=== PATIENT | male | born 1955 | race American Indian/Alaskan Native ===

== ENCOUNTER 2018-06-20 07:20 | Day surgery (SDC) | payer BC, OTHER ==
[~2018-06-20] VITALS: Ht 180.3 cm; Wt 77.1 kg
[~2018-06-20 07:20] MED LIST: CIPRO500 MG PO; DITROPAN XL5 MG PO; FLAGYL500 MG PO; HYDROCODON-ACE1 EAC8 PO; NEXIUM20 MG PO; NORCO 5-325 TA1 EACH PO; OXYBUTYNIN CHLOR5 MG PO; TAMSULOSIN HCL0.4 MG PO; ZOFRAN ODT4 MG SL; ZOFRAN ODT8 MG PO
--- NOTE | 2018-06-20 08:44 | NUR ---
06/20/18 0844 Karen Goodwin 0832-PATIENT ARRIVED TO PACU ON 2L NC NONAROUSABLE. RR EVEN. ABDOMEN SOFT. LAYING LEFT LATERAL. 0840-PATIENT OPENING EYES TO VERBAL STIMULI ENCOURAGED TO PASS GAS. 2L NC.
--- NOTE | 2018-06-21 06:22 | OR ---
[facility] [address], [place] [address] Signed DATE OF OPERATION: 06/20/2018 SURGEON: Korin Mcgowan MD PREOPERATIVE DIAGNOSES: 1. Personal history of colonic polyps in 2013. 2. Hemorrhoids. 3. Diverticulosis. 4. Radical cystoprostatectomy with ileal conduit. POSTOPERATIVE DIAGNOSES: 1. Moderate internal and external hemorrhoids. 2. 5 mm polyps proximal and distal transverse colon. 3. Minimal sigmoid diverticulosis. PROCEDURE: Colonoscopy with hot biopsy. ESTIMATED BLOOD LOSS: None. INDICATIONS: Rocael is a 63-year-old gentleman, who underwent a colonoscopy in 2013. He is known to have hemorrhoids along with diverticulosis and colonic polyps. In the meantime, he underwent a radical cystoprostatectomy with an ileal conduit. He returns now for his followup colonoscopy. There is no family history of colon cancer or polyps. He says his bowel movements are good. In the office, I gave him a pamphlet on colonoscopy and we looked at that together along with the risks including, but not limited to gas, bloating, crampy abdominal pain, bleeding, perforation, requiring surgery, and missed diagnosis. He also understands the need for IV conscious sedation. He had expressed understanding and wished to proceed. PROCEDURE NOTE: Rocael was taken into our operating room and placed in the left lateral decubitus position. He was given IV sedation with 8 mg of Versed and 100 mcg of fentanyl. A digital rectal exam was performed. 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 He does have moderate external hemorrhoids. Good sphincter tone. The adult colonoscope was introduced and advanced all the way around into the cecum under direct visualization of camera. It took some abdominal compression and some additional sedation in order to advance the scope. His prep was quite Electronically Signed By: KORIN MCGOWAN MD 06/21/18 0622 PATIENT NAME: ROCAEL FLOWERS OPERATIVE REPORT DATE OF : 57 REPORT #: [id number] PHYSICIAN: KORIN MCGOWAN MD PCP: BARBRA NAVARRO REPORT IS CONFIDENTIAL AND NOT TO BE RELEASED WITHOUT AUTHORIZATION [facility] [address], [place] [address] Signed excellent. We had taken pictures throughout for photodocumentation. The above-mentioned polyps were easily removed with the help of hot biopsy forceps. We did see a few diverticula in the sigmoid colon. Upon retroflexion of the scope, he does have some moderate internal hemorrhoids. After this, the gas was suctioned out and the colonoscope removed. Rocael tolerated the procedure quite well. RECOMMENDATIONS: I will see Rocael back in my office in 7 to 14 days to review his results. It looks like he will stay on the 5-year rotation for colonoscopies. MD MORIS Barrera/TIAN /[id number] cc: MD Barbra Barrera PA Copies: KORIN MCGOWAN MD, KRISTIN H PA ~ Electronically Signed By: KORIN MCGOWAN MD 06/21/18 0622 PATIENT NAME: ROCAEL FLOWERS OPERATIVE REPORT DATE OF : 57 REPORT #: [id number] PHYSICIAN: KORIN MCGOWAN MD PCP: BARBRA NAVARRO REPORT IS CONFIDENTIAL AND NOT TO BE RELEASED WITHOUT AUTHORIZATION
== END 2018-06-20 09:26 | disposition home or self-care (01) ==
LOC: DS 07:20 → OPS 07:20 → DS 08:15 → OPS 09:26
PROVIDERS: Colon & Rectal Surgery
PROC: 0DBL8ZZ Excision of Transverse Colon, Via Natural or Artificial Opening Endoscopic (ICD-10-PCS; principal; 2018-06-20 08:15)
DX: Z12.11 Encounter for screening for malignant neoplasm of colon (principal); D12.3 Benign neoplasm of transverse colon; K64.8 Other hemorrhoids; K64.4 Residual hemorrhoidal skin tags; K63.5 Polyp of colon; K57.30 Diverticulosis of large intestine without perforation or abscess without bleeding; F17.210 Nicotine dependence, cigarettes, uncomplicated; Z98.890 Other specified postprocedural states; Z90.79 Acquired absence of other genital organ(s)
CPT/HCPCS: 99153; G0500; J2250; J3010; J7120

== ENCOUNTER 2022-12-19 14:25 | Inpatient (IN) | payer BC, OTHER ==
[~2022-12-19] VITALS: Ht 180.3 cm; Wt 75.5 kg
--- OUTSIDE RECORDS SUMMARY | ~2022-12-19 | XMS | Continuity of Care Document ---
Demographics + + + | Address | [address] | | | [place] [address] | + + + | Preferred Language | Unknown | + + + | Marital Status | | + + + | Taoist Affiliation | Unknown | + + + | Race | or | + + + | Ethnic Group | Unknown | + + + Author + + + | Author | [facility] | + + + | Organization | [facility] | + + + | Address | [address] | | | [place] [address] | + + + | Phone | | + + + Care Team Providers + + + + | Care Cement Contractor Name | Role | Phone | + + + + Unavailable | Unavailable | + + + + Allergies and Intolerances + + + + + + | date | description | facility | reaction | severity | + + + + + + | (no date) | No Known | [facility] | (no reaction) | (no severity) | | | Allergies | | | | + + + + + + Encounters No information. Functional Status No information. Immunizations No information. Medications No information. Problems No information. Procedures No information. Results/Labs No information. Social History No information. Vital Signs No information."
[~2022-12-19 14:25] MED LIST changes: +KEFLEX500 MG PO
[2022-12-19] MEDS ORDERED: SENNA8.6 MG PO (14:43)
[2022-12-19 15:51] LABS: BASOPHILS 0.5 % (0-2); EOSINOPHILS 0.6 % (0-6); HEMATOCRIT 48.6 % (35.0-50.0); HEMOGLOBIN 16.4 g/dL (12.0-18.0); LYMPHOCYTES 22.7 % (24-44); MCH 30.6 (27-36); MCHC 33.8 g/dl (30-36); MCV 90.4 fl (81-99); MONOCYTES 7.3 % (0-12); NEUTROPHILS 68.9 % (39-80); PLATELET COUNT 204 K/uL (140-440); RBC 5.38 M/ul (4.3-5.7); RDW 13.6 (10.5-15.0)
[2022-12-19 15:59] LABS: BILIRUBIN, URINE NEGATIVE (negative); BLOOD/HGB, URINE MODERATE (Negative); KETONE, URINE NEGATIVE (Negative); LEUK ESTERASE, URINE SMALL (negative); NITRITE, URINE POSITIVE (negative)
[2022-12-19 16:07] LABS: ALBUMIN 4.4 g/dL (3.4-5.0); ALBUMIN/GLOBULIN RATIO 1.29 (1.1-2.4); ANION GAP 13.4 (7-21); BILIRUBIN, TOTAL 0.9 ng/dL (0.2-1.0); BUN/CREATININE RATIO 13.17 (6.0-28.6); CALCIUM 9.9 mg/dL (8.5-10.1); CREATININE, SERUM 1.29 mg/dL (0.70-1.30); POTASSIUM 4.4 mmol/L (3.5-5.1); PROTEIN, TOTAL 7.8 g/dL (6.4-8.2)
[2022-12-19 16:17] LABS: BACTERIA, URINE 3+ /hpf (negative); CASTS, URINE NONE SEEN \\lpf; CRYSTALS, URINE NONE SEEN (0-1+); EPITHELIAL CELLS, URINE NONE SEEN /lpf (0-1+)
[2022-12-19 16:18] LABS: COLLECTION TYPE, URINE CLEAN CATCH; REFLEX CULTURE, URINE Yes (No)
[2022-12-19 19:14] VITALS: BP 168/82
--- NOTE | 2022-12-19 19:38 | NUR ---
REPORT RECEIVED FROM DAY SHIFT RN. PT LYING IN BED ALERT AND ORIENTED. RV DETAILER IN FOR ADMISSION. FLOAT RN ADMINISTERING PAIN MEDS AND SCDHEDULED MEDS. NO NEEDS FROM THIS RN AT THIS TIME. WHITE BOARD UPDATED. CALL LIGHT IN REACH.
--- NOTE | 2022-12-19 19:50 | NUR ---
ADMISSION HISTORY COMPLETE, pt AND ANSWERING QUESTIONS. FLOAT AKBAR ART IN ROOM MEDICATING pt FOR PAIN, NAUSEA, AND ADMINISTERING SCHEDULED ANTIBIOTICS. ORIENTATION TO ROOM PROVIDED. pt HAS CALL LIGHT IN REACH. SURGICAL CONSENT SIGNED BY pt AND ON CHART. FAMILY PRESENT IN ROOM.
--- NOTE | 2022-12-19 20:00 | NUR ---
FAX RECEIVED FROM TELEPHARMACY TO CLARIFY MEDICATION ORDERS. DISCUSSED WITH DR. MCGOWAN. NEW TELEPHONE ORDERS RECEIVED VERIFIED WITH READBACK METHOD.
--- NOTE | 2022-12-19 20:33 | NUR ---
ADMISSION ASSESSMENT COMPLETE. PT REPORTS CONTINUED NAUSEA. PRN N/V ADMIN PER EMAR. BOWEL TONES ACTIVE. ABD SOFT. UROSTOMY PATENT WITH CLEAR YELLOW URINE. PT ORIENTED TO ROOM AND NURSE CALL LIGHT. FAMILY AT BEDSIDE. NO FURTHER NEEDS.
--- NOTE | 2022-12-19 22:06 | NUR ---
IV FREQUENTLY OCCLUDING IN LEFT AC. PT AGREEABLE TO NEW IV. 20G PLACED IN RIGHT FOREARM. PT GLADYS WELL. IV ABX INFUSING WNL. PT REPORTS HE IS RESTING COMFORTABLY. DENIES NEEDS AT THIS TIME.
--- NOTE | 2022-12-19 23:19 | NUR ---
IV PUMP ALARMING. IV ABX COMPLETE. MAINTENANCE FLUIDS NOW INFUSING PER ORDER. PT AWAKENS BRIEFLY WHILE THIS RN IN ROOM. IN ROOM TO STAY THE NIGHT. NO NEEDS AT THIS TIME.
[2022-12-20] VITALS (8 sets, daily range): BP systolic 120–153; BP diastolic 65–75
--- NOTE | 2022-12-20 01:53 | NUR ---
PT RESTING WITH EYES CLOSED. AWAKENS EASILY. VS AND I&O OBTAINED. PRN ADMIN FOR 6/10 ABD PAIN. BOWEL TONES ACTIVE. ABD SOFT. UROSTOMY WITH 275 ML YELLOW URINE. PT REMINDED OF NPO STATUS. WARM BLANKETS PROVIDED FOR . NO FURTHER NEEDS.
--- NOTE | 2022-12-20 03:35 | NUR ---
PT RESTING IN BED WITH EYES CLOSED. RESPIRATIONS EVEN. CALL LIGHT IN REACH.
[2022-12-20 06:04] LABS: BASOPHILS 0.2 % (0-2); EOSINOPHILS 0.1 % (0-6); HEMATOCRIT 44.9 % (35.0-50.0); HEMOGLOBIN 14.9 g/dL (12.0-18.0); LYMPHOCYTES 10.2 % (24-44); MCH 30.2 (27-36); MCHC 33.1 g/dl (30-36); MCV 91.3 fl (81-99); MONOCYTES 6.9 % (0-12); NEUTROPHILS 82.6 % (39-80); PLATELET COUNT 162 K/uL (140-440); RBC 4.92 M/ul (4.3-5.7); RDW 13.9 (10.5-15.0)
--- NOTE | 2022-12-20 06:06 | CONS ---
[facility] [address], [place] [address] Signed DATE OF CONSULTATION: 12/19/2022 CHIEF COMPLAINT: Right lower quadrant abdominal pain. HISTORY OF PRESENT ILLNESS: Rocael is a 67-year-old gentleman, who had developed bladder cancer. He eventually progressed to a radical cystoprostatectomy with an ileal conduit in the right lower quadrant in June 2016, at [facility]. He has done well since that time. 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 Earlier today around noon or so, he felt some pain around his ileostomy. It has been persistent, so he came to emergency room for evaluation. In the emergency room, his white count is normal, but the CT scan did confirm a small bowel forming a parastomal hernia. He has received some pain medication and was feeling a lot better. I have been asked to see him as a general surgeon on-call. PAST MEDICAL HISTORY: Bladder cancer. PAST SURGICAL HISTORY: Radical cystoprostatectomy with ileal conduit at [facility] in 2017, also transurethral resection of bladder tumor with chemotherapy, repair of a perforated ulcer and left shoulder surgery. SOCIAL HISTORY: He is down to 3 cigarettes a day. He does not drink. He likes to chew on Zyn. He prefers [facility] along with the [facility]. Ari Flowers, is his at [phone]. He works [employer] maintenance. FAMILY HISTORY: None. REVIEW OF SYSTEMS: He had 10 systems reviewed and he talked to me mostly about the bladder cancer. ALLERGIES: None. MEDICATIONS: Senna. PHYSICAL EXAMINATION: VITAL SIGNS: His blood pressure is 164/87 from the pain, heart rate 56, respiratory Electronically Signed By: KORIN JIMENES MD 12/20/22 0606 PATIENT NAME: ROCAEL FLOWERS CONSULTATION DATE OF : 57 REPORT #: [id number] PHYSICIAN: KORIN JIMENES MD PCP: [facility] REPORT IS CONFIDENTIAL AND NOT TO BE RELEASED WITHOUT AUTHORIZATION [facility] [address], [place] [address] Signed rate 16, temperature is 98.5. He is 100% on room air. He is 5 feet 11 inches and 74 kg with a body mass index of 23. GENERAL: This is a 67-year-old gentleman, lying supine in his ER bed. His is in the room. He does not appear systemically ill or toxic. LUNGS: Clear to auscultation bilaterally. HEART: Regular rate and rhythm without murmurs. ABDOMEN: Generally soft and flat. It is hard to see underneath the stoma appliance. He seems to have some tenderness there. He has entire bag full of yellow clear urine. He said the conduit has been working fine all day. LABORATORY DATA: His white blood count 9.2, hemoglobin 16, neutrophils 68. Electrolytes unremarkable. The urine shows bacteria, but then he has an ileal conduit. Urine culture was sent. Albumin is 4.4. RADIOGRAPHIC STUDIES: CT scan of abdomen and pelvis is reviewed along with the report and the images. He does have a parastomal hernia containing small bowel. ASSESSMENT/PLAN: Rocael is a 67-year-old gentleman, who presents with a parastomal hernia containing small bowel. Currently, our OR crew has been working since 5 a.m. The other surgeon is still operating. We are going to get Rocael admitted, IV fluids, antibiotics, and pain control. We are going to do a surgery first thing in the morning. I reviewed all this with Rocael and his . We discussed the need for a midline incision and reduction of the hernia. He may need a small bowel resection. We will close the hole primarily. We are not going to move his ileal conduit given that he has a high rate of recurrence. They have expressed understanding and agreed to above plan. Korin Jimenes MD [facility]/MODL /[id number] cc: [facility] Patient's Chart Electronically Signed By: KORIN JIMENES MD 12/20/22 0606 PATIENT NAME: ROCAEL FLOWERS CONSULTATION DATE OF : 57 REPORT #: [id number] PHYSICIAN: KORIN JIMENES MD PCP: [facility] REPORT IS CONFIDENTIAL AND NOT TO BE RELEASED WITHOUT AUTHORIZATION [facility] [address] [facility] [place], [place] [address] Signed Korin Jimenes MD Copies: [facility] KORIN JIMENES MD ~ Electronically Signed By: KORIN JIMENES MD 12/20/22 0606 PATIENT NAME: ROCAEL FOLWERS CONSULTATION DATE OF : 57 REPORT #: [id number] PHYSICIAN: KORIN JIMENES MD PCP: [facility] REPORT IS CONFIDENTIAL AND NOT TO BE RELEASED WITHOUT AUTHORIZATION
--- NOTE | 2022-12-20 06:35 | NUR ---
VS AND I&O OBTAINED. PT REPORTS ABD PAIN 5/10. PRN FOR PAIN ADMIN PER EMAR. PT UP TO BR FOR SURGICAL WIPEDOWN. CLEAN GOWN AND LINENS PROVIDED. BACK TO BED, GLADYS WELL. SCD'S IN PLACE. DR. MCGOWAN IN TO UPDATE PT ON PLAN OF CARE. PT/ DENY QUESTIONS OR CONCERNS. CALL LIGHT IN REACH.
[2022-12-20 06:45] LABS: ANION GAP 14.8 (7-21); BUN/CREATININE RATIO 11.9 (6.0-28.6); CREATININE, SERUM 1.68 mg/dL (0.70-1.30); MAGNESIUM 1.8 mg/dL (1.8-2.4); PHOSPHORUS, INORGANIC 3.5 mg/dL (2.5-4.9); POTASSIUM 4.8 mmol/L (3.5-5.1)
--- NOTE | 2022-12-20 06:45 | NUR ---
PT OFF THE FLOOR WITH SURGERY NURSE. DOWN TO DAY SURGERY WITH PT.
--- NOTE | 2022-12-20 07:08 | NUR ---
REPORT RECEIVED FROM AKBAR JACKSON. PT OUT OF ROOM FOR PROCEDURE. NO NEEDS FROM THIS RN.
--- NOTE | 2022-12-20 07:10 | NUR ---
PRAYED WITH PT AND BEFORE SURGERY. PRAYED FOR SUCCESSFUL PROCEDURE AND MOODY AND COMPLETE RECOVERY.
--- NOTE | 2022-12-20 07:25 | EKG ---
[facility] [address] [facility] [place], [place] [address] Signed Normal sinus rhythm Left axis deviation Abnormal ECG No previous ECGs available Confirmed by MITA PULIDO MD ([id number]) on 12/20/2022 7:25:21 AM Electronically Signed By: MITA PULIDO 12/20/22 0725 PATIENT NAME: ROCAEL FLOWERS MANAV Electrocardiogram DATE OF : 57 PHYSICIAN: MITA PULIDO REPORT #: [id number] REPORT IS CONFIDENTIAL AND NOT TO BE RELEASED WITHOUT AUTHORIZATION
--- NOTE | 2022-12-20 09:46 | NUR ---
12/20/22 0946 Jacqueline Glaser 0929 PT ARRIVED IN PACU SLEEPY. ICE AND PILLOW TO ABD. 0945 RESTING. REU.
--- NOTE | 2022-12-20 10:13 | NUR ---
PT BACK TO ROOM ACCOMPANIED BY RN. BEDSIDE REPORT RECEIVED. PT DENIES PAIN. VITALS COMPLETE. NEW ICE PACK PLACED. PT REQUESTING ICE CHIPS. ICE CHIPS PROVIDED. NEW BAG OF FLUIDS STARTED, SEE JUN. IV's FLUSH WNL. FAMILY IN ROOM. PT DENIES ANY NEEDS FROM THIS RN AT THIS TIME. CALL LIGHT IN REACH. BED ALARM ON.
--- NOTE | 2022-12-20 10:42 | NUR ---
ASSESSMENT COMPLETE. LUNG SOUNDS CLEAR IN RUL AND VIC. DIMINISHED IN RLL AND LLL. BOWEL TONES HYPOACTIVE. ABD FIRM WITH PALPATION. PT DENIES PAIN AT THIS TIME. PT A&O TO ALL. ICE CHIPS PROVIDED. FAMILY IN ROOM. BED ALARM ON. CALL LIGHT IN REACH. PT DENIES ANY OTHER NEEDS AT THIS TIME.
--- NOTE | 2022-12-20 12:35 | NUR ---
IN TO ROUND ON PT. PT UP IN BED EATING LUNCH. VITALS COMPLETE. UROSTOMY EMPTIED. PT DENIES ANY OTHER NEEDS AT THIS TIME. CALL LIGHT IN REACH. BED ALARM ON.
--- NOTE | 2022-12-20 13:00 | NUR ---
Spoke with pt, Ari, and daughter. Pt drowsy and answers most of questions. They live in a 2 story home. Pt does not have issues getting in or out of home. 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 and daughter state concern as they were on planning on trip for [facility] service for Grandmother. They were to fly out Sat. Pt stating he will be going. Pt does not use any DME. If he requires DME on dc, he would like to use [facility]. denies financial issues. Per they could also wait to fly next week on Mon or Tues if needed. Service is not until next Sun.
--- NOTE | 2022-12-20 15:42 | NUR ---
IN TO ROUND ON PT. PT UP IN BED ON PHONE. IN ROOM. NO NEEDS IDENTIFIED AT THIS TIME. CALL LIGHT IN REACH.
--- NOTE | 2022-12-20 15:46 | NUR ---
IN TO ANSWER CALL LIGHT. PT STATES "I WAS JUST CALLING BECAUSE SOMEONE TRIED TO COME IN WHILE I WAS ON THE PHONE." ASSESSMENT COMPLETE. LUNG SOUNDS CLEAR. BOWEL TONES ACTIVE. DRESSING TO MID ABD D/I WITH SMALL AMOUNT OF SHADOWING NOTED. ABD FIRM WITH PALPATION. PT DENIES PAIN AT THIS TIME. PT REPORTS PASSING GAS 1X EARLIER TODAY. UROSTOMY EMPTIED. PT DENIES ANY OTHER NEEDS AT THIS TIME. CALL LIGHT IN REACH. BED ALARM ON.
--- NOTE | 2022-12-20 16:43 | NUR ---
IN TO ROUND ON PT. FWW BROUGHT INTO ROOM. THIS RN WAS ABLE TO GET PT TO SIT AT EDGE OF BED. PT STATES "I FEEL A LITTLE DIZZY, I DON'T THINK I SHOULD STAND UP. I DO WANT TO KEEP SITTING ON EDGE OF BED THOUGH. IT FEELS GOOD." PT CONTINUES TO SIT ON EDGE OF BED. DINNER TRAY PROVIDED. PT CALL LIGHT IN REACH. PT ENCOURAGED TO CALL IF PT NEEDS ASSISTANCE. PT VERBALIZES UNDERSTANDING. PT DENIES ANY OTHER NEEDS AT THIS TIME. CALL LIGHT IN REACH.
--- NOTE | 2022-12-20 17:33 | NUR ---
IN TO ROUND ON PT. PT LAYING IN BED. PT GOES TO SIT UP ON EDGE OF BED TO CONTINUE EATING DINNER. PT STATES "MY BROTHER CALLED, SO I LAYED IN BED AND TALKED TO HIM." PT DENIES ANY NEEDS AT THIS TIME. CALL LIGHT IN REACH.
--- NOTE | 2022-12-20 19:30 | NUR ---
PT AWAKE IN BED WATCHING TV. CALL LIGHT WITHIN REACH. IV FLUIDS INFUSING. SURGICAL DRESSING AND OSTOMY BAG IN PLACE. SCD'S IN PLACE. NO NEEDS AT THIS TIME. SAFETY PRECAUTIONS IN PLACE.
--- NOTE | 2022-12-20 23:58 | OR ---
[facility] [address] [place] [address], [place] [address] Signed DATE OF OPERATION: 12/20/2022 SURGEON: Korin Jimenes MD PREOPERATIVE DIAGNOSES: 1. Parastomal hernia. 2. Umbilical hernia. POSTOPERATIVE DIAGNOSIS: 1. Parastomal hernia. 2. Umbilical hernia. PROCEDURES: 1. Primary repair of incarcerated parastomal hernia. 2. Primary repair of incarcerated umbilical hernia. ESTIMATED BLOOD LOSS: None. FINDINGS: Rocael had a 2 cm parastomal hernia. He had a 1 cm umbilical hernia. The umbilical hernia contained omentum. The parastomal hernia contained a knuckle of small intestine that remained viable. INDICATIONS: Rocael is a 67-year-old gentleman, who in 2017 underwent a radical cystoprostatectomy and placement of an ileal conduit in his right lower quadrant at [facility] He has done very well since that time. 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 Yesterday, he noticed pain on the lateral side of his ileal conduit. He came to emergency room for evaluation. His white count was normal. He had a palpable lump in that area that could not be reduced. The CT scan showed the knuckle of small bowel next to the ileal conduit on the lateral side. The other surgeon was operating with our continuity editor crew. So, we admitted Rocael overnight with IV fluids, antibiotics, and some pain control. This morning, he said he felt much better and was sleeping when I came in this morning to see him. White count remained normal. His has been with him throughout this whole time. I know Rocael's for many years. I explained to Rocael we needed to use his midline incision to come underneath and repair the hernia. Our plan was not to move the ileal conduit but simply close it primarily. We would resect the bowel as needed. We could easily repair his small umbilical hernia as well. He understands there is risk Electronically Signed By: KORIN JIMENES MD 12/20/22 2358 PATIENT NAME: ROCAEL FLOWERS OPERATIVE REPORT DATE OF : 57 REPORT #: [id number] PHYSICIAN: KORIN JIMENES MD PCP: [facility] REPORT IS CONFIDENTIAL AND NOT TO BE RELEASED WITHOUT AUTHORIZATION [facility] [address] [place], [place] [address] Signed to surgery including, but not limited to bleeding, infection, scarring, change in contour of the skin, damage to bowel, damage to the ileal conduit, incisional hernias as well as recurrent peristomal hernia and a recurrent umbilical hernia and other unforeseen comorbidities. He had expressed understanding and wished to proceed. PROCEDURE IN DETAIL: After talking with Rocael's , we took him into the operating room and placed him in the supine position under general endotracheal tube anesthesia. He was already on preoperative antibiotics along with subcutaneous Lovenox. SCDs were utilized. We inserted a sterile Mcgee catheter into his ileal conduit and inflated balloon to about 5 mL total. We then made sure there was no undue tension on the Mcgee and we brought off the side of the bed. The entire abdomen along with a sterile Mcgee catheter was then prepped and draped in the usual sterile fashion. We utilized his previous periumbilical midline incision. We entered the abdomen without difficulty. He did have a few adhesions above the umbilicus, which we took down with cautery. He does have some adhesions down in between the loops of bowel, but we left those along. Fortunately, we only had to do a few adhesions to get our way over to the ileal conduit. It was very easy to recognize ileal conduit separate from his other loops of bowel as it was mildly dilated. Sure enough we found a piece of small bowel in the lateral side and a gentle traction we were able to reduce that. The antimesenteric side of that 4 cm segment of bowel was a little hemorrhagic, but otherwise quite viable. It was peristalsing and looked quite viable to us throughout the remainder of the surgery. The fascial defect was a couple of cm maybe slightly more. We used #1 Prolene x2 with a fygxdm-id-iolum stitch. Closed that peristomal defect primarily. I gave no undue tension on the ileostomy itself. After this, we took the omentum down from the umbilical hernia. Again, we used #1 Prolene gbhiko-xp-ijlkb stitches x2 to close his umbilical fascial defect. We then closed the midline fascia with interrupted luzzev-kf-nrkfh #1 PDS sutures. Local anesthetic was injected in the subcutaneous tissues. The wound was irrigated and suctioned out until clear. We closed the dermis with interrupted 3-0 subcuticular Monocryl sutures. [place] were then used to bring the skin edges together. Our anesthesia provider then provided bilateral subcostal and tap blocks with ultrasound guidance. We then placed our sterile gauze over his midline incision. A new appliance was placed over his ileal conduit. After this, Rocael was awakened from his anesthesia, extubated in the OR, and taken to recovery room in stable condition. Korin Jimenes MD [facility]/MODL Electronically Signed By: KORIN JIMENES MD 12/20/22 6008 PATIENT NAME: ROCAEL FLOWERS OPERATIVE REPORT DATE OF : 57 REPORT #: [id number] PHYSICIAN: KORIN JIMENES MD PCP: [facility] REPORT IS CONFIDENTIAL AND NOT TO BE RELEASED WITHOUT AUTHORIZATION [address] [place], [place] [address] Signed /[id number] cc: Korin Jimenes MD [facility] Copies: KORIN JIMENES MD [facility] ~ Electronically Signed By: KORIN JIMENES MD 12/20/22 2358 PATIENT NAME: ROCAEL FLOWERS OPERATIVE REPORT DATE OF : 57 REPORT #: [id number] PHYSICIAN: KORIN JIMENES MD PCP: [facility] REPORT IS CONFIDENTIAL AND NOT TO BE RELEASED WITHOUT AUTHORIZATION
[2022-12-21 01:17] VITALS: BP 120/65
[2022-12-21 05:24] VITALS: BP 122/71
--- NOTE | 2022-12-21 05:34 | NUR ---
PT. VITAL SIGNS AND I/OS CHARTED. PT. UROSTOMY EMPTIED. ROOM TIDIED, TRASH CANS EMPTIED, FRESH ICE WATER GIVEN, RN NOTIFIED OF IV PUMP ALARM. CALL LIGHT LEFT WIHTIN REACH. NO OTHER NEEDS AT THIS TIME.
--- NOTE | 2022-12-21 07:10 | NUR ---
REPORT RECEIVED FROM AKBAR LORD. PT UP IN BED WATCHING TV. PT RESPONDS WHEN ADDRESSED. PT DENIES ANY NEEDS AT THIS TIME. CALL LIGHT IN REACH.
--- NOTE | 2022-12-21 08:09 | NUR ---
pt resting in bed. pt up now in room. pt ambulates 2 laps around rn station sba w fww. pt tolerated well. pt up to chair. linens changed. no needs. call light within reach
--- NOTE | 2022-12-21 08:59 | NUR ---
IN TO ADMINISTER MEDICATION, SEE MAR. PT TAKES PO MEDICATION WITH NO ISSUES. PT REPORTING PAIN IN ABD 11/06. PRN PAIN MEDICATION ADMINISTERED, SEE MAR. PT DENIES ANY OTHER NEEDS AT THIS TIME. CALL LIGHT IN REACH. PT UP IN RECLINER EATING BREAKFAST.
[2022-12-21 09:15] VITALS: BP 129/61
--- NOTE | 2022-12-21 09:24 | NUR ---
IN TO COMPLETE ASSESSMENT. GUERITA ESCOBAR IN TO ASSIST WITH VITALS AND I&Os. VITALS AND I&Os COMPLETE. ASSESSMENT COMPLETE. LUNG SOUNDS CLEAR. BOWEL TONES ACTIVE. PT REPORTS PASSING GAS EARLIER THIS AM. PT REPORTS TENDERNESS WITH PALPATION. ABD FIRM WITH PALPATION. DRESSING TO MIDLINE ABD C/D/I. PT REQUESTING TO CHANGE UROSTOMY APPLIANCE TO PTs OWN FROM HOME. ASSISTED PT WITH CHANGING UROSTOMY. PT DENIES ANY OTHER NEEDS AT THIS TIME. PT UP IN RECLINER WITH BLE ELEVATED. CALL LIGHT IN REACH.
--- NOTE | 2022-12-21 10:08 | NUR ---
PT SITTING IN CHAIR. STATED WAS FEELING PRETTY GOOD BUT ADMITTED TO SOME PAIN. DENIED NEEDS. CONSENTED TO PRAYER. PRAYED FOR ONGOING HEALING AND ABIDING PEACE.
--- NOTE | 2022-12-21 10:53 | NUR ---
IN TO ROUND ON PT. PT UP IN RECLINER WATCHING TV. PT RESPONDS WHEN ADDRESSED. PT REPORTING PAIN 2/10 AND STATES "IT IS NOT BAD IT WAS." PT DENIES PRN PAIN MEDICATION WHEN OFFERED. PT REQUESTING HEAT TURNED UP IN ROOM. HEAT TURNED UP. PT DENIES ANY OTHER NEEDS AT THIS TIME. CALL LIGHT IN REACH.
--- NOTE | 2022-12-21 12:30 | NUR ---
THIS RN NOTIFIED THAT PT IS REQUESTING PRN PAIN MEDICATION. IN TO ROUND ON PT. PT REPORTING PAIN 11/06 IN ABD. PRN PAIN MEDICATION ADMINISTERED, SEE MAR. PT TAKES PO MEDICATION WITH NO ISSUES. PT DENIES ANY OTHER NEEDS AT THIS TIME. CALL LIGHT IN REACH. IN ROOM.
--- NOTE | 2022-12-21 12:39 | NUR ---
MED REC COMPLETE
--- NOTE | 2022-12-21 13:00 | NUR ---
pt ambulates 2 laps around rn station w tawana mckinnon rn
--- NOTE | 2022-12-21 13:00 | NUR ---
Spoke with pt and his . He denies needs. States he has been up walking in the [place]. He denies need for a walker or cane.
[2022-12-21 13:21] VITALS: BP 136/68
--- NOTE | 2022-12-21 13:55 | NUR ---
IN TO ROUND ON PT. PT UP IN RECLINER. PT REPORTING PAIN 08/07. PT DENIES PRN PAIN MEDICATION AT THIS TIME. OFFERED PT ICE PACK. PT DENIES ICEPACK. PT DENIES ANY OTHER NEEDS AT THIS TIME. CALL LIGHT IN REACH.
--- NOTE | 2022-12-21 15:08 | NUR ---
THIS RN CALLED DR. MCGOWAN REGARDING PTs PRELIMINARY URINE CULTURE RESULTS. NO NEW ORDERS AT THIS TIME. AWARE.
--- NOTE | 2022-12-21 15:33 | NUR ---
IN TO ROUND ON PT. PT UP IN RECLINER. PT REPORTING PAIN 6/10 TO ABD. PT DENIES ANY PRN PAIN MEDICATION OR ICE PACK WHEN OFFERED.
--- NOTE | 2022-12-21 17:03 | NUR ---
IN TO ROUND ON PT. PT UP IN RECLINER. PT FLUIDS RESUMED. DINNER TRAY DELIVERED. PT REPORTING PAIN 4/10 IN ABD. PT DENIES ANY PRN PAIN MEDICATION WHEN OFFERED. VITALS COMPLETE. I&Os COMPLETE. PT DENIES ANY OTHER NEEDS AT THIS TIME. CALL LIGHT IN REACH.
[2022-12-21 17:05] VITALS: BP 147/67
--- NOTE | 2022-12-21 19:22 | NUR ---
IN IV PUMP ALARMING. NEW BAG OF FLUIDS STARTED, SEE JUN. PT REPORTING PAIN 5/10 TO ABD. PRN PAIN MEDICATION ADMINISTERED, SEE JUN. DINNER TRAY REMOVED. LIGHT TURNED OFF PER PT REQUEST. PT DENIES ANY OTHER NEEDS AT THIS TIME. CALL LIGHT IN REACH.
--- NOTE | 2022-12-21 19:42 | NUR ---
PT UP IN CHAIR WATCHING TV. IV INFUSING. CALL LIGHT LIGHT WITHIN REACH. PRN MOTRIN ADMINISTERED PER PT REQUEST. NO OTHER NEEDS AT THIS TIME. SAFETY PRECAUTIONS IN PLACE.
--- NOTE | 2022-12-21 19:43 | NUR ---
REPORT RECEIVED FROM DAY SHIFT NURSE. PT SITTING UP IN CHAIR WATCHING TV. SAFETY PRECAUTIONS IN PLACE. CALL LIGHT WITHIN REACH. PAIN MEDS GIVEN PER PATIENT REQUEST. NO OTHER NEEDS AT THIS TIME.
[2022-12-21 20:21] VITALS: BP 142/68
--- NOTE | 2022-12-21 20:24 | NUR ---
Pt sitting in chair. pt in room. pt has no needs at this time.
--- NOTE | 2022-12-21 21:20 | NUR ---
assisted pt with ambulating in hallway, walked 1.5 laps, tolerated well. pt back in bed, no additional needs or concerns verbalzied. call light in reach. pt left resting quietly in bed, scd's in place. pt remains on ra, rr even and unlabored.
[2022-12-22 05:44] VITALS: BP 157/78
--- NOTE | 2022-12-22 07:05 | NUR ---
REPORT RECEIVED FROM AKBAR LORD. PT UP IN RECLINER. IN ROOM. PT RESPONDS WHEN ADDRESSED. PT DENIES ANY NEEDS AT THIS TIME. CALL LIGHT IN REACH.
--- NOTE | 2022-12-22 07:31 | NUR ---
REPORT GIVEN TO DAY SHIFT RN. PT SITTING UP IN A CHAIR WATCHING TV. IN THE ROOM. INCISION CLEAN, DRY AND INTACT. PAIN MEDS GIVEN PER PT REQUEST. CALL LIGHT WITHIN REACH. NO OTHER NEEDS AT THIS TIME. SAFETY PRECAUTIONS IN PLACE.
--- NOTE | 2022-12-22 09:14 | NUR ---
IN TO ADMINISTER MEDICATION, SEE MAR. PT TAKES PO MEDICATION WITH NO ISSUES. PT REPORTING PAIN 4/10 TO ABD. PT DENIES PRN PAIN MEDICAITON WHEN OFFERED. PT SL AT THIS TIME. ASSESSMENT COMPLETE. LUNG SOUNDS CLEAR. BOWEL TONES ACTIVE. ABD DISTENTION NOTED. PT REPORTS TENDERNESS WITH ABD PALPATION. PT REPORTS NOT PASSING ANY GAS SINCE "ABOUT 10 O'CLOCK LAST NIGHT." PT MIDLINE INCISION OPEN TO AIR. NO REDNESS NOTED, NOT WARM TO TOUCH. PT DENIES NUMBNESS OR TINGLING AT THIS TIME. PT DENIES ANY OTHER NEEDS AT THIS TIME. CALL LIGHT IN REACH.
[2022-12-22 10:08] VITALS: BP 142/75
--- NOTE | 2022-12-22 10:37 | NUR ---
VITAL SIGNS COMPLETED. PT REPORTING PAIN 10/07, REQUESTING PAIN MEDICATION, GIVEN MOTRIN AND NORCO. FRESH ICE PACK PROVIDED. PT DENIES OTHER NEEDS AT THIS TIME.
--- NOTE | 2022-12-22 11:34 | NUR ---
PT IN CHAIR BUT STATED VERY SLEEPY FROM MEDICATION. STATED DOING WELL AND HAD BEEN UP WALKING. SHORT VISIT. PRAYED FOR ONGOING HEALING.
--- NOTE | 2022-12-22 12:25 | NUR ---
IN TO ROUND ON PT. PT UP IN RECLINER. PT REPORTING PAIN 2/10 IN ABD. PT DENIES PRN PAIN MEDICATION AT THIS TIME. TRAY REMOVED. PT DENIES ANY OTHER NEEDS AT THIS TIME. CALL LIGHT IN REACH.
--- NOTE | 2022-12-22 13:21 | NUR ---
SPOKE TO PATIENT ABOUT THE DISCHARGE PLAN.THE PATIENT WILL GO HOME WITH HIS FAMILY WHEN MEDICALLY STABLE TO BE DISCHARGED.
--- NOTE | 2022-12-22 13:50 | NUR ---
THIS RN CALLED DR. MCGOWAN REGARDING URINE CULTURE FINAL RESULT SHOWING KLEBSIELLA OXYTOCA AND ESCHERICHIA COLI. MD AWARE. NO NEW ORDERS AT THIS TIME.
[2022-12-22 13:55] VITALS: BP 157/75
--- NOTE | 2022-12-22 14:00 | NUR ---
IN TO ROUND ON PT. PT UP IN RECLINER. VITALS AND I&Os COMPLETE. PT REPORTING THAT HE WOULD LIKE TO AMBULATE. PT UP AND AMBULATING RECIO. PT DENIES ANY NEEDS FROM THIS RN AT THIS TIME.
--- NOTE | 2022-12-22 15:32 | NUR ---
IN TO ROUND ON PT. PT UP IN RECLINER. ASSESSMENT COMPLETE. LUNG SOUNDS CLEAR. BOWEL TONES ACTIVE. PT REPORTS PASSING FLATUS. MIDLINE INCISION OPEN TO AIR. NO REDNESS NOTED. NOT WARM TO TOUCH. CINDY IN PLACE. PT REPORTING PAIN 5/10. PT DENIES PRN PAIN MEDICATION WHEN OFFERED. PT DENIES ANY OTHER NEEDS AT THIS TIME. CALL LIGHT IN REACH.
[2022-12-22 18:11] VITALS: BP 153/70
--- NOTE | 2022-12-22 19:20 | NUR ---
RECEIVED REPORT FROM DAY SHIFT RN. PATIENT IS WALKING AROUND IN ROOM. PATIENT DENIES ANY NEEDS. CALL LIGHT IN REACH.K
[2022-12-22 20:10] VITALS: BP 160/88
--- NOTE | 2022-12-22 20:31 | NUR ---
PATIENTS VITALS TAKEN AND RECORDED. INTAKE AND OUT RECORDED. PATIENT CARES FOR OWN UROSTOMY AND DENIES ANY NEED FOR SUPPLIES. PATIENT RATES PAIN AT A 5/10, PRN MPTRIN GIVEN PER ORDER. PATIENT PROVIDED FRESH ICE WATER. PATIENT GIVEN X2 FRESH ICE PACKS AND APPLIED TO ABD. PATIENTS MIDLINE ABD INCISION HAS CINDY PRESENT, WELL APPROXIMATED AND IS C/D/I. PATIENTS ABD IS DISTENDED BUT SOFT. ACTIVE BOWEL TONES NOTED. PATIENT DENIES ANY FURTHER NEEDS. CALL LIGHT IN REACH. PATIENT IS SITTING IN RECLINER.
--- NOTE | 2022-12-22 22:04 | NUR ---
PATIENT IS RESTING IN RECLINER WATCHING TV. PATIENT DENIES ANY NEEDS. CALL LIGHT IN REACH.
--- NOTE | 2022-12-23 00:16 | NUR ---
PATIENT REPORTS 5/10 ABD PAIN, PRN PAIN MEDICATION GIVEN PER ORDER. PATIENT GIVEN PRN SLEEP AID PER REQUEST. PATIENT DENIES ANY FURTHER NEEDS. CALL LIGHT IN REACH.
--- NOTE | 2022-12-23 02:19 | NUR ---
PATIENT IS RESTING IN BED ON RIGHT SIDE WITH EYES CLOSED, RR 14. CALL LIGHT IN REACH.
--- NOTE | 2022-12-23 04:03 | NUR ---
PATIENT IS RESTING IN BED WITH EYES CLOSED, RR 15. CALL LIGHT IN REACH.
[2022-12-23 05:49] VITALS: BP 144/72
--- NOTE | 2022-12-23 06:09 | NUR ---
PATIENTS VITALS TAKEN AND RECORDED. PATIENTS UROSTOMY BAG EMPTIED. INTAKE AND OUTPUT RECORED. PATIENTS MIDLINE INCISION HAS CINDY PRESENT, WELL APPROX, AND IS C/D/I. PATIENTS ABD REMAINS DISTENED AND SOFT. PATIENT CONTINUES TO HAVE ACTIVE BOWEL TONES AND IS PASSING GAS. PATIENT DENIES ANY PAIN OR NAUSEA. PATIENT DENIES ANY NEEDS. CALL LIGHT IN REACH.
--- NOTE | 2022-12-23 07:25 | NUR ---
HANDOFF REPORT RECEIVED FROM FOUNDING PARTNER RN.
--- NOTE | 2022-12-23 08:20 | NUR ---
PT SITTING IN CHAIR, ALERT AND ORIENTED. PT ON ROOM AIR, DENIES SOB, LUNG SOUNDS CLEAR. PT RATING PAIN 5/10, GIVEN 2 TABS NORCO PER EMAR. PT WITH MIDLINE INCISION, CINDY IN PLACE, WITHOUT REDNESS OR DRAINAGE. RIGHT UROSTOMY WITH YELLOW URINE. CMS INTACT, WITHOUT EDEMA. BOWEL TONES ACTIVE, DENIES NAUSEA, DISCUSSED WALKING IN RECIO THIS AM. PT DENIES OTHER NEEDS AT THIS TIME.
[2022-12-23] MEDS ORDERED: HYDROCODON-ACE1 EA10 PO (10:37)
[2022-12-23 11:49] VITALS: BP 162/68
--- NOTE | 2022-12-23 20:30 | NUR ---
PT CALLED WITH CONCERNS OF NOT BEING ABLE TO PASS GAS AND WANTING TO KNOW IF HE COULD TAKE ANY MEDICATION FOR IT. DR. MCGOWAN CALLED AND INFORMED OF PT CONDITION. PT DENIES BM, REPORT MINIMAL GAS AND FEELING BLOATED. PT DENIES N/V. DR. MCGOWAN REQUESTS THAT PT STICK TO CLEAR LIQUIDS FOR A FEW DAYS AND TO TRY A DULCOLAX SUPPOSITORY. PT CALLED AND NOTIFIED OF INSTRUCTIONS. INSTRUCTED PT TO RETURN TO ED IF STARTS VOMITING OR INCREASED PAIN. PT VERBALIZED UNDERSTANDING.
--- NOTE | 2022-12-24 07:26 | DS ---
[facility] [address], [place] [address] Signed ADMISSION DATE: 12/19/2022 DISCHARGE DATE: 12/23/2022 FINAL DIAGNOSES: 1. Parastomal hernia. 2. Umbilical hernia. PROCEDURES: 1. Primary repair, parastomal hernia. 2. Primary repair, umbilical hernia. 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 He has been doing well since that time. 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. Prior to his admission, he felt pain and swelling next to the stoma. He came to emergency room for evaluation. A CT scan confirmed his parastomal hernia. It was not reducible. I have been asked to admit him as a general surgeon on-call. HOSPITAL COURSE: I met with Rocael and his and explained the above finding. We took him to surgery that morning on 12/20/2022. He underwent reduction of the hernia and primary suture repair of both hernias without incident. He has done well both intraop and postop. He is now tolerating his diet and passing gas and having good output from his urostomy. The ER did send off urine culture and it came back with Klebsiella and E coli. This represents colonization. We have not treated that. His urine is quite clear and yellow and he has no symptoms whatsoever. At this point, he said he would like to go home. DISCHARGE PLANS AND MEDICATIONS: Rocael is going to be going home today with his family. His is out of town currently. He is going to follow a regular diet. We could see his incision is healing well without any local signs or symptoms of infection. His abdominal exam is benign. His urostomy is functioning quite well. He is welcome to perform his activities of daily living including walking up and down stairs and showering bathing as usual. He is not to do any heavy pushing, pulling, or lifting over about 20 pounds. He is not to engage in any sports. He said he would like a little bit of hydrocodone, which we will provide to him. He will have hydrocodone 5 mg tablets one tablet p.o. q.6 hours p.r.n. for pain. We will give him 20 tablets with no refills. He is welcome to use Tylenol, ibuprofen for [id number] pain. He would like to use stool softener and melatonin and that is certainly fine to resume that today. We will leave all the sylvia in Electronically Signed By: KORIN JIMENES MD 12/24/22 0726 PATIENT NAME: ROCAEL FLOWERS DISCHARGE SUMMARY DATE OF : 57 REPORT #: [id number] PHYSICIAN: KORIN JIMENES MD PCP: [facility] [address] REPORT IS CONFIDENTIAL AND NOT TO BE RELEASED WITHOUT AUTHORIZATION [facility] [address] [place] [id number] We will have him back in the office in about a week for followup and remove the sylvia. He expressed understanding, agrees with above plan. Korin Jimenes MD ALB/MODL /[id number] cc: Patient's Chart [facility] Korin Jimenes MD Copies: [facility] [address] KORIN JIMENES MD ~ Electronically Signed By: KORIN JIMENES MD 12/24/22 0726 PATIENT NAME: ROCAEL FLOWERS DISCHARGE SUMMARY DATE OF : 57 REPORT #: [id number] PHYSICIAN: KORIN JIMENES MD PCP: [facility] [address] REPORT IS CONFIDENTIAL AND NOT TO BE RELEASED WITHOUT AUTHORIZATION
== END 2022-12-23 12:30 | disposition home or self-care (01) | DRG 355 ==
LOC: ED 14:25 → MS 14:27
PROVIDERS: Emergency Medicine; ADMIT Colon & Rectal Surgery; ATTEND Colon & Rectal Surgery
PROC: 0WQF0ZZ Repair Abdominal Wall, Open Approach (ICD-10-PCS; principal; 2022-12-20 07:30)
DX: K43.3 Parastomal hernia with obstruction, without gangrene (principal); K42.0 Umbilical hernia with obstruction, without gangrene; F17.210 Nicotine dependence, cigarettes, uncomplicated; B96.1 Klebsiella pneumoniae [K. pneumoniae] as the cause of diseases classified elsewhere; K66.0 Peritoneal adhesions (postprocedural) (postinfection); B96.20 Unspecified Escherichia coli [E. coli] as the cause of diseases classified elsewhere; Z98.890 Other specified postprocedural states; Z92.21 Personal history of antineoplastic chemotherapy; Z85.51 Personal history of malignant neoplasm of bladder; Z79.899 Other long term (current) drug therapy
CPT/HCPCS: 00750; 36415; 74177; 76942; 80048; 80053; 81001; 83690; 83735; 84100; 85025; 87088; 93005; 93010; 99406; A9270; C9113; J0131; J0696; J0780; J1100; J1170; J1650; J1885; J2405; J2704; J2795; J3490; J7030; J7121; Q9967

== ENCOUNTER 2023-02-12 19:54 | Emergency (ER) | payer BC, OTHER ==
[~2023-02-12] VITALS: Ht 180.3 cm; Wt 75.3 kg
[~2023-02-12 19:54] MED LIST changes: +HYDROCODON-ACE1 EA10 PO; +SENNA8.6 MG PO
[2023-02-12 21:02] LABS: BASOPHILS 0.6 % (0-2); EOSINOPHILS 0.4 % (0-6); HEMATOCRIT 43.4 % (35.0-50.0); HEMOGLOBIN 14.8 g/dL (12.0-18.0); MCH 30.3 (27-36); MCHC 34.1 g/dl (30-36); MCV 88.9 fl (81-99); MONOCYTES 4.2 % (0-12); NEUTROPHILS 83.8 % (39-80); PLATELET COUNT 243 K/uL (140-440); RBC 4.88 M/ul (4.3-5.7); RDW 13.8 (10.5-15.0)
[2023-02-12 21:16] LABS: ALBUMIN 4.6 g/dL (3.4-5.0); ALBUMIN/GLOBULIN RATIO 1.53 (1.1-2.4); ANION GAP 18.3 (7-21); BILIRUBIN, TOTAL 0.6 ng/dL (0.2-1.0); BUN/CREATININE RATIO 11.64 (6.0-28.6); CALCIUM 9.8 mg/dL (8.5-10.1); CREATININE, SERUM 1.46 mg/dL (0.70-1.30); MAGNESIUM 1.5 mg/dL (1.8-2.4); POTASSIUM 4.3 mmol/L (3.5-5.1); PROTEIN, TOTAL 7.6 g/dL (6.4-8.2)
[2023-02-12 22:58] LABS: BILIRUBIN, URINE NEGATIVE (negative); BLOOD/HGB, URINE TRACE-I (Negative); KETONE, URINE NEGATIVE (Negative); LEUK ESTERASE, URINE NEGATIVE (negative); NITRITE, URINE POSITIVE (negative); PH, URINE 7.5 (5-7)
[2023-02-12 23:05] LABS: EPITHELIAL CELLS, URINE SQUAMOUS 1+ /lpf (0-1+)
[2023-02-12 23:06] LABS: BACTERIA, URINE 3+ /hpf (negative); CASTS, URINE NONE SEEN \\lpf; CRYSTALS, URINE NONE SEEN (0-1+); REFLEX CULTURE, URINE Yes (No)
[2023-02-12 23:20] LABS: AMPHETAMINES, URINE NEGATIVE (NEGATIVE); BARBITURATES, URINE NEGATIVE (NEGATIVE); BENZODIAZEPINE, URINE NEGATIVE (NEGATIVE); BUPRENORPHINE, URINE NEGATIVE (NEGATIVE); CANNABINOID, URINE POSITIVE (NEGATIVE); COCAINE, URINE NEGATIVE (NEGATIVE); ECSTASY, URINE NEGATIVE (NEGATIVE); FENTANYL, URINE NEGATIVE (NEGATIVE); METHADONE, URINE NEGATIVE (NEGATIVE); OPIATES, URINE NEGATIVE (NEGATIVE); OXYCODONE, URINE NEGATIVE (NEGATIVE); PHENCYCLIDINE, URINE NEGATIVE (NEGATIVE)
[2023-02-13 00:15] VITALS: BP 122/65
== END 2023-02-13 00:15 | disposition home or self-care (01) ==
LOC: ED 19:54
PROVIDERS: Emergency Medicine
DX: R11.2 Nausea with vomiting, unspecified (principal); D72.829 Elevated white blood cell count, unspecified; F17.200 Nicotine dependence, unspecified, uncomplicated; Z93.6 Other artificial openings of urinary tract status; Z79.899 Other long term (current) drug therapy
CPT/HCPCS: 36415; 80053; 80307; 81001; 83735; 85025; 87088; 96361; 96374; 99284-25; A9270; G0480; J2405; J7040

== ENCOUNTER 2024-08-17 01:09 | Emergency (ER) | payer BC, OTHER ==
[~2024-08-17] VITALS: Ht 180.3 cm; Wt 78.9 kg
[2024-08-17] MEDS ORDERED: ondansetron HCL 4 MG/2 ML VIAL IV ONE (01:30)
[2024-08-17] MEDS ORDERED: HYDROmorphone HCL 1 MG/ML SYR IV PRN (01:30)
[2024-08-17 01:32] LABS: BASOPHILS 0.7 % (0-2); EOSINOPHILS 1.6 % (0-6); HEMATOCRIT 44.8 % (35.0-50.0); HEMOGLOBIN 15.8 g/dL (12.0-18.0); LYMPHOCYTES 44.4 % (24-44); MCHC 35.3 g/dl (30-36); MCV 87.8 fl (81-99); MONOCYTES 9.2 % (0-12); NEUTROPHILS 44.1 % (39-80); PLATELET COUNT 191 K/uL (140-440); RDW 13.6 (10.5-15.0)
[2024-08-17 01:50] LABS: ALBUMIN 3.6 g/dL (3.4-5.0); ALBUMIN/GLOBULIN RATIO 1.24 (1.1-2.4); ANION GAP 14.1 (7-21); BILIRUBIN, TOTAL 0.7 mg/dL (0.2-1.0); CALCIUM 8.7 mg/dL (8.5-10.1); CREATININE, SERUM 1.25 mg/dL (0.70-1.30); POTASSIUM 4.1 mmol/L (3.5-5.1); PROTEIN, TOTAL 6.5 g/dL (6.4-8.2)
[2024-08-17 02:16] LABS: BILIRUBIN, URINE NEGATIVE (negative); BLOOD/HGB, URINE SMALL (Negative); KETONE, URINE NEGATIVE (Negative); LEUK ESTERASE, URINE NEGATIVE (negative); NITRITE, URINE NEGATIVE (negative)
[2024-08-17 02:28] LABS: CRYSTALS, URINE NONE SEEN (0-1+); EPITHELIAL CELLS, URINE NS /lpf (0-1+)
[2024-08-17 02:29] LABS: BACTERIA, URINE 3+ /hpf (negative); CASTS, URINE NONE SEEN \\lpf; COLLECTION TYPE, URINE CLEAN CATCH; REFLEX CULTURE, URINE Yes (No)
[2024-08-17] MEDS ORDERED: HYDROCODON-ACE1 EA10 PO (02:52)
[2024-08-17] MEDS ORDERED: HYDROCODONE BIT/ACETAMINOPHEN 5/325 MG 1 TAB HOME.PACK PO PRN (03:00)
[2024-08-17 03:02] VITALS: BP 125/73
== END 2024-08-17 03:02 | disposition home or self-care (01) ==
LOC: ED 01:09
PROVIDERS: Emergency Medicine
DX: K43.5 Parastomal hernia without obstruction or gangrene (principal); F17.200 Nicotine dependence, unspecified, uncomplicated
CPT/HCPCS: 36415; 74177; 80053; 81001; 83690; 85025; 87077; 87088; 87186; 96375; 99284-25; A9270; J1171; J2405; Q9967